=== PATIENT | male | born 1995 | race African-American/Black ===

== ENCOUNTER 2022-07-28 12:51 | Emergency (ER) | payer SELFPAY ==
--- NOTE | ~2022-07-28 | XR_ITS ---
EXAMINATION: XR FOOT, LEFT CLINICAL INFORMATION: Left foot pain after crush injury COMPARISON: None TECHNIQUE: 3 views of the left foot. FINDINGS: Bones have normal density and alignment. The joint spaces are normal. No evidence of fracture or subluxation. Question presence of mild dorsal soft tissue swelling of the forefoot. The specific site of injury is not marked on the images. There is no soft tissue gas or radiopaque foreign body. XR/XR foot LT 2V IMPRESSION: No acute osseous injury in the left foot.
[2022-07-28 14:05] VITALS: BP 130/77; PULSE 65; RESP 16; TEMP 36.3; O2SAT 100; BMI 26.6
--- NOTE | 2022-07-28 18:31 | ED.EXTPRO ---
HPI - Extremity Problem General Chief complaint: Extremity Problem Stated complaint: l foot crushed at work Time Seen by Provider: 07/28/22 18:25 Source: patient Mode of arrival: wheelchair Limitations: no limitations History of Present Illness HPI Narrative: 26-year-old male previously healthy here with left foot pain after a crush injury from a [employer] while working on Wednesday. Pain is worsened with weight-bearing. No numbness or tingling or weakness Related Data Previous Rx's Medication Instructions Recorded ibuprofen 800 mg tablet 800 mg PO Q6H PRN pain #30 tabs 07/28/22 Allergies Allergy/AdvReac Type Severity Reaction Status Date / Time No Known Allergies Allergy Verified 07/28/22 14:07 Review of Systems Review of Systems: Yes all other systems are reviewed and are negative Constitutional: Constitutional: Reports no additional constitutional complaints, Denies body ache(s), Denies chills, Denies fever(s), Denies headache(s) and Denies weakness Eyes: Eyes: Reports no additional eye complaints and Denies change in vision ENT: Reports system reviewed and no additional complaints, except as documented, Denies dizziness, Denies headache(s), Denies nasal congestion, Denies nasal discharge and Denies neck pain Cardiovascular: Cardiovascular: Reports no additional cardiovascular complaints, Denies chest pain, Denies leg edema and Denies dyspnea Respiratory: Respiratory: Reports no additional respiratory complaints, Denies cough and Denies dyspnea Gastrointestinal: Gastrointestinal: Reports no additional gastrointestinal complaints, Denies abdominal pain, Denies diarrhea, Denies nausea and Denies vomiting Genitourinary: Genitourinary: Denies urinary incontinence Musculoskeletal: Musculoskeletal: Reports no additional musculoskeletal complaints, Denies back pain, Reports arthralgias, Reports joint swelling, Reports limited range of motion, Denies neck pain, Denies numbness and Denies tingling Integumentary/Breasts: Skin/Breast: Reports system reviewed and no additional complaints, except as docu and Denies rash Neurologic: Reports system reviewed and no additional complaints, except as documented, Denies Abnormal speech present, Denies dizziness, Denies headache(s), Denies numbness, Denies tingling and Denies weakness PMFSH Past Medical History Attestation statement: The following information was validated with the patient. Source: old records reviewed Social History Social History Advance Directives: No Advance Directives Information Provided: Yes Physical Exam Vital Signs: Vital Signs: Last Vital Signs Temp 97.3 F 07/28/22 14:05 Pulse 65 07/28/22 14:05 Resp 16 07/28/22 14:05 BP 130/77 07/28/22 14:05 Pulse Ox 100 07/28/22 14:05 O2 Del Method 07/28/22 14:05 BMI result Body Mass Index 26.6 Const: General: cooperative, healthy appearing, comfortable and no acute distress Orientation/consciousness: patient oriented x3 Limitations: no limitations HEENT: Head: Yes normal to inspection Ears: hearing grossly normal bilaterally General nose exam: Normal external nose present Face and sinus: Yes normal facial exam Mouth: Normal oral and palatal mucosa present Throat: Yes posterior oropharynx normal Eyes: General: appearance normal, both eyes and all related structures Pupils: Equal, round and reactive pupils present Neck: Neck: Yes normal visual inspection Chest: Chest palpation & inspection: normal inspection of the chest Resp: Effort & Inspection: normal respiratory effort Auscultation: clear to auscultation bilaterally Cardio: Rate: regular rate Rhythm: regular rhythm Peripheral pulses: Peripheral pulses 2+ throughout GI: Inspection: Yes normal to inspection Palpation (GI): Soft to palpation and nontender Auscultation: normal bowel sounds Back/Spine/Pelvis: Thoracic/Lumbar Spine: thoracic and lumbar spine normal to inspection Skin: General skin exam: no rashes or lesions noted Neuro: General: patient oriented x3, no focal motor deficits and normal sensation to monofilament Cranial nerves: Yes Equal, round and reactive pupils present Cognition (Neuro): normal cognition Speech: No Abnormal speech present Gait exam (Neuro): Normal gait present Motor exam (neuro): 5/5 motor strength present throughout Extrem: Other: Tenderness over the dorsal distal foot with ecchymosis and swelling. Full range of motion. Neurovascular intact distally. Palpable pulses. Negative Morrow test. No ankle pain on exam. General: Yes normal to inspection Course Course Course Narrative: X-ray show no bony abnormality. Likely contusion. Patient will be given Ronan wrap and crutches. Reviewed rice. Reviewed worrisome signs and symptoms of when to return to the emergency room. Comfortable discharge home. MDM - Extremity (Nontraumatic) MDM Narrative Medical decision making narrative: 26-year-old male here with crush injury to left foot with pain and specially with weight-bearing. Will obtain x-rays Medical Records Attestation: I reviewed the patient's medical records. Lab Data Attestation: I reviewed the patient's lab results. Imaging Data foot x-ray: Attestation: I personally reviewed and interpreted this imaging study as follows: Radiologist's impression: [address] [address] XRay Report Signed Patient: Juvencio Ramsey MR#: [id number] : 02/26/1978 Acct:[id number] Age/Sex: 44 / M ADM Date: 07/28/22 Loc: HO.ED Attending Dr: Ordering Physician: Generic ED Physician Date of Service: 07/28/22 Procedure(s): XR lumbar spine 2-3V Accession Number(s): [id number] cc: Generic ED Physician~ EXAMINATION: XR LUMBOSACRAL SPINE CLINICAL INFORMATION: Back pain. COMPARISON: None TECHNIQUE: Three views of the lumbosacral spine. FINDINGS: The vertebral bodies and posterior elements are normal. The disc spaces are preserved and the vertebral alignment is normal. The paraspinal soft tissues are normal. XR/XR lumbar spine 2-3V IMPRESSION: Unremarkable lumbar spine. Procedures Procedure Narrative Procedure Narrative: ronan wrap, crutches Discharge Plan Discharge Clinical Impression: Contusion of foot, left Patient Disposition: Home, Self-Care Instructions: Foot Contusion (ED) Additional Instructions: Ice, elevation Use the Ronan wrap and crutches for the next few days with nonweightbearing Use Motrin and/or Tylenol for pain as needed Follow-up with [facility] at [id number] for any persistent symptoms Prescriptions: New ibuprofen 800 mg tablet 800 mg PO Q6H PRN (Reason: pain) Qty: 30 0RF Stand Alone Forms: Work/School Release
== END 2022-07-28 19:46 | disposition home or self-care (01) ==
PROVIDERS: Emergency Provider Emergency Medicine
DX: S90.32XA Contusion of left foot, initial encounter (principal); W20.8XXA Other cause of strike by thrown, projected or falling object, initial encounter; Y93.89 Activity, other specified; Y92.59 Other trade areas as the place of occurrence of the external cause; Y99.0 Civilian activity done for income or pay
CPT/HCPCS: 73620; 99282; 99283